=== PATIENT | male | born 1980 | race Caucasian/White ===

== ENCOUNTER 2018-07-30 15:49 | Emergency (ER) | payer SELFPAY ==
--- NOTE | 2018-07-30 16:04 | ED.PDOC ---
History of Present Illness - General Stated Complaint: L hand pain Time Seen by Provider: 07/30/18 15:58 Source: patient Exam Limitations: no limitations - History of Present Illness Initial Comments: Hit door at work two days ago in anger. Has had swelling and pain Pain - Upper Extremity: moderate: Hand, left Method of Injury: direct blow Improving Factors: immobilization Worsening Factors: movement Allergies/Adverse Reactions: Allergies NO KNOWN ALLERGY Allergy (Verified 07/30/18 16:14) Home Medications: Ambulatory Orders NK 07/30/18 Review of Systems - Review of Systems Constitutional: States: no symptoms reported EENTM: States: no symptoms reported Respiratory: States: no symptoms reported Musculoskeletal: States: joint pain, joint swelling Skin: States: no symptoms reported Neurological: States: no symptoms reported Physical Exam - Physical Exam General Appearance: Alert, Comfortable Eyes, Ears, Nose, Throat Exam: PERRL/EOMI Wrist Exam: normal inspection, non-tender, normal ROM Hand Exam: limited ROM, soft tissue tenderness, swelling - to 4-5th MP joints with decreased ROM Neuro/Tendon: normal sensation, no evidence tendon injury Mental Status: alert, oriented x 3 Skin Exam: normal color, warm/dry Departure - Departure Clinical Impression: Boxer's metacarpal fracture, neck, closed Qualifiers: Encounter type: initial encounter Qualified Code(s): S62.339A - Displaced fracture of neck of unspecified metacarpal bone, initial encounter for closed fracture Disposition: Discharge to Home or Self [facility] Medications: Ambulatory Orders 07/30/18
--- NOTE | 2018-07-30 16:33 | RAD ---
EXAM DESCRIPTION: Hand,Left 3 Views CLINICAL HISTORY: injured two days ago, hit a door COMPARISON: None. TECHNIQUE: 3 views left FINDINGS: A fracture of the distal shaft of the fifth metacarpal is observed. A fracture of the distal tuft of the distal phalanx of the third digit is also observed. IMPRESSION: 1. A boxer's type fracture of the distal aspect of the fifth metacarpal is observed. 2. Minimal fracturing of the distal tuft of the distal phalanx of the third digit is demonstrated. Electronically signed by: Beau Woo MD 07/30/2018 4:31 PM [facility]
[2018-07-30 17:06] VITALS: BP 118/83; TEMP 97; O2SAT 97
== END 2018-07-30 17:02 | disposition home or self-care (01) ==
LOC: ER 15:49
DX: S62.337A Displaced fracture of neck of fifth metacarpal bone, left hand, initial encounter for closed fracture (principal); W22.09XA Striking against other stationary object, initial encounter; Y99.0 Civilian activity done for income or pay; Y92.69 Other specified industrial and construction area as the place of occurrence of the external cause